=== PATIENT | female | born 1970 | race Two or more races ===

== ENCOUNTER 2021-10-21 12:25 | Outpatient (REF) | payer MEDICARE, MEDICAID, SELFPAY ==
[2021-10-21 13:58] LABS: Blood Urea Nitrogen 13 mg/dL (9-16); Estimated Glomerular Filt Rate > 60
== END 2021-10-21 12:26 | disposition home or self-care (01) ==
LOC: HO.LAB 12:25
PROVIDERS: PCP Internal Medicine; Visit Provider Psychiatry & Neurology Neurology
DX: I60.9 Nontraumatic subarachnoid hemorrhage, unspecified (principal); G44.209 Tension-type headache, unspecified, not intractable
CPT/HCPCS: 36415; 82565; 84520

== ENCOUNTER 2021-10-27 07:53 | Outpatient (REF) | payer MEDICARE, MEDICAID, SELFPAY ==
--- NOTE | ~2021-10-27 | CT_ITS ---
EXAMINATION: CT ANGIOGRAM BRAIN, HEAD CLINICAL INFORMATION: 51-year-old with non-traumatic subarachnoid hemorrhage. COMPARISON: None TECHNIQUE: Test bolus sequences followed by intravenous administration 100 mL of Omnipaque 350 intravenous contrast. Helical imaging was performed in the axial plane from the skull base to the vertex. Delayed postcontrast imaging of the head was also performed. The data was processed at the remote sensing technologist's workstation for generation of MIP sequences. Three-dimensional volume rendered reformatted images were also generated at an offline 3-D workstation. The degree of stenosis determined by NASCET criteria. This CT examination was performed using dose optimization techniques as appropriate, variously including the following: *Automated exposure control. *Adjustment of mA and/or kV according to patient size (this includes techniques or standardized protocols for targeted exams where dose is matched to indication/reason for exam; i.e. extremities or head). *Use of iterative reconstruction technique. DLP: 2291 mGy-cm FINDINGS: CT BRAIN: Precontrast and delayed postcontrast views demonstrate that the brain is normal in morphology and attenuation. There is no evidence for hemorrhage or extra-axial fluid collection. Embolic coils are noted in place in the posterior fossa, consistent with the patient's history of previous partial embolization and resection for posterior fossa AVM in 1997. Jesus-white matter differentiation is preserved. The ventricular system and subarachnoid spaces are within normal limits without hydrocephalus. There are postoperative changes involving the posterior suboccipital calvarium in the midline. Otherwise, the bony structures appear intact. The mastoids and middle ear cavities are unopacified and the visualized paranasal sinuses are clear. The visualized extracranial soft tissue structures are unremarkable. The visualized extradural vertebral arteries are patent and normal in caliber bilaterally and appear codominant. The intradural vertebral arteries are patent without segmental occlusion or significant focal stenosis. The posterior inferior cerebellar arteries are not clearly visualized. The basilar artery is tortuous but is otherwise normal in caliber and configuration. Superior cerebellar and posterior cerebral arteries are patent and normal in caliber. No evidence for recurrent high flow vascular malformation. The ICAs are patent and normal in caliber bilaterally. The A1 and A2 segments are patent and normal in caliber. The M1 segments and M2 branches are symmetric and are patent and normal in caliber. CT/CT angio head IMPRESSION: 1. Post embolic and postsurgical changes noted in the posterior fossa consistent with previous treatment of arteriovenous malformation with no definite evidence for recurrent high flow vascular malformation. 2. No acute intracranial process with otherwise unremarkable pre and postcontrast CT of the brain.
[2021-10-27] MEDS: iohexoL 350 MG/ML 100 ML INFUS..BTL 75 ML IV (08:47)
== END 2021-10-27 07:54 | disposition home or self-care (01) ==
LOC: HO.CT 07:53
PROVIDERS: PCP Internal Medicine; Visit Provider Psychiatry & Neurology Neurology
DX: I60.9 Nontraumatic subarachnoid hemorrhage, unspecified (principal)
CPT/HCPCS: 70496; Q9967

== ENCOUNTER 2023-07-20 12:30 | Emergency (ER) | payer OTHER, SELFPAY ==
[2023-07-20] VITALS (7 sets, daily range): BP systolic 124–156; BP diastolic 61–77; PULSE 90–120; RESP 16–20; TEMP 36.4–36.9; O2SAT 98–99; BMI 25.6
--- NOTE | ~2023-07-20 | CT_ITS ---
EXAMINATION: CT HEAD WITHOUT CONTRAST CLINICAL INFORMATION: Headache COMPARISON: CT brain 10/27/2021 TECHNIQUE: Contiguous axial imaging was performed from the skull base to vertex without intravenous administration of contrast. This CT examination was performed using dose optimization techniques as appropriate, variously including the following: *Automated exposure control *Adjustment of mA and/or kV according to patient size (this includes techniques or standardized protocols for targeted exams where dose is matched to indication/reason for exam; i.e. extremities or head) *Use of iterative reconstruction technique DLP: 773 mGy-cm FINDINGS: There is no acute intra-axial, extra-axial bleed, masses or midline shift. There is no acute infarction in evolution. There is no edema the snyder to white matter differentiation is maintained normal. The lateral ventricles are symmetrical in size and configuration without enlargement. There is midline axilla craniotomy with midline metallic density question embolization coils or postsurgical changes. The paranasal sinuses and mastoid air cells are well-aerated. CT/CT head/brain wo IV con IMPRESSION: No acute intracranial process seen. Postsurgical changes in the posterior fossa. No change from previous CT brain 10/27/2021
--- NOTE | 2023-07-20 12:36 | ED_ITS ---
HPI - Chest Pain General Chief Complaint: Arrhythmia/Palpitations Stated Complaint: Low BP Time Seen by Provider: 07/20/23 18:22 Source: patient Mode of arrival: ambulatory Limitations: no limitations History of Present Illness HPI narrative: 53-year-old female came in for evaluation of 1 day history of palpitation, feeling lightheadedness, fatigued and tired. patient's symptoms is mostly with walking and exertion, in the morning patient had left upper extremity numbness without weakness or speech abnormality that is resolved shortly, patient had a history of AVM malformation that was treated by surgical clipping remotely causing the patient to live with chronic headache that is not any worse today. Patient checked her blood pressure at her pharmacy today and was 88/45. no cp or sob (tiredness feeling rather with exertion), no recent travel, no LE swelling or tenderness, no hx of PE or DVT. also decline Flu like symptoms, fever, or chills. Related Data Previous Rx's Medication Instructions Recorded cefuroxime axetil 500 mg tablet 500 mg PO BID #14 tabs 07/20/23 Allergies Allergy/AdvReac Type Severity Reaction Status Date / Time famciclovir [From Famvir] Allergy Palpitation Verified 07/20/23 12:41 s Review of Systems 2 Review of Systems: All other systems are reviewed and are negative Constitutional: Reports as per HPI and Reports no additional constitutional complaints Eyes: Reports as per HPI and Reports no additional eye complaints Reports system reviewed and no additional complaints, except as documented Cardiovascular: Reports as per HPI and Reports no additional cardiovascular complaints Respiratory: Reports as per HPI and Reports no additional respiratory complaints Gastrointestinal: Reports as per HPI and Reports no additional gastrointestinal complaints Genitourinary: Reports no additional female genitourinary complaints Musculoskeletal: Reports no additional musculoskeletal complaints Skin/Breast: Reports system reviewed and no additional complaints, except as docu Psychiatric: Reports no additional psychiatric complaints Endocrine: Reports no additional endocrine complaints Hematologic/Lymphatic: Reports no additional hematologic/lymphatic complaints Allergic/Immunologic: Reports no additional allergic/immunologic complaints Reports system reviewed and no additional complaints, except as documented and Reports Abnormal speech present [facility] Past Medical History Source: unable to obtain Social History Social History Smoked in Last 30 Days: No Use of substances other than those prescribed or required for medical reasons: No Advance Directives: No Patient : No Physical Exam 2 Vital Signs: Vital Signs: Last Vital Signs Temp 98.2 F 07/20/23 21:37 Pulse 94 07/20/23 21:37 Resp 16 07/20/23 21:37 BP 134/69 07/20/23 21:37 Pulse Ox 98 07/20/23 21:37 O2 Del Method Room Air 07/20/23 21:37 BMI result Body Mass Index 25.6 Vital signs have been reviewed and appear to be correct. Blood pressure elevated. Heart rate elevated. Respiratory rate normal. Temperature normal. Oxygen saturation normal. Appearance: Alert. Oriented X3. No acute distress. Head: Normal external exam. Normocephalic. Atraumatic. No Liang signs noted. No raccoon eyes noted Eyes: PERRLA. EOMI. Conjunctiva and sclera normal. Eyelids normal. ENT: TM's Normal. Pharynx normal. Uvula midline. Dry mucous membranes. No trismus noted. No drooling noted. No muffled voice noted. Neck: Normal inspection. Neck supple. FROM. No adenopathy. Thyroid Normal. No meningeal signs. No neck mass noted. CVS: Normal heart rate and rhythm. Heart sound normal. No murmurs noted. Pulses normal throughout. Respiratory: No respiratory distress. Painless inspiration. Breath sounds normal. No wheezes/rales/rhonchi noted. Chest nontender. No accessory muscle usage noted or decreased air movement noted. Abdomen: Soft and nontender. Bowel sounds normal in all 4 quadrants. No distention noted. No organomegaly noted. No visible injury noted. Back: No CVA tenderness. Full range of motion noted. Skin: Skin warm and dry. Normal skin color. Normal skin turgor. No rashes/lesions/lacerations noted. Extremities: No lower extremity edema. Extremities exhibit normal range of motion. Extremities nontender. Neuro: Oriented X 3. Cranial nerve exam: II-XII are grossly intact No motor deficit. No sensory deficit. Reflexes normal. NIH Stroke Scale Level of Consciousness: Alert Level of Consciousness Questions: Answers both questions correctly Level of Consciousness Commands: Performs both tasks correctly Best Gaze: Normal Visual: No visual loss Facial Palsy: Normal Motor Arm (Right): No drift Motor Arm (Left): No drift Motor Leg (Right): No drift Motor Leg (Left): No drift Limb Ataxia: Absent Sensory: Normal Best Language: No aphasia Dysarthia: Normal Extinction and Inattention: No abnormality Score: 0 Course Course Course Narrative: RME: 53 year-old F w/ PMHx mini stroke, aneurysm presenting to the ED c/o CP since yesterday, and now with LUE tingling/numbness, lightheadedness, palpitations w/ low BP at [employer] 88/45. Not on AC Suspect A.fib w/RVR on monitor in triage (new onset) EKG, Labs, CXR orthostatics ordered Full HPI, ROS and PE to be performed by primary ED provider. Reevaluation(s) Reevaluation #1: [age] year old female presented with generalized weakness and fatigue with lack of energy today had a low blood pressure and palpitation with sinus tachycardia, no hypoxia or tachyapnea. No fever or chills. No sick contacts, patient had unremarkable labs, appear to be dehydrated on the exam, with a normal renal function test, patient had orthostatic tachycardia, patient received IV fluid in the emergency department feeling slightly better. UTI will treat with cefuroxime patient was encouraged to drink plenty of fluids. Head CT: No acute intracranial pathology. No new or acute headache, no weakness or numbness. Time: 21:33 Medications Administered Discontinued Medications Generic Name Dose Route Start Last Admin Trade Name Freq PRN Reason Stop Dose Admin Cefuroxime Axetil 500 mg 07/20/23 21:31 07/20/23 21:45 Cefuroxime Axetil 500 Mg Tablet PO 07/20/23 21:32 500 mg ONCE ONE Administration Sodium Chloride 1,000 mls @ 999 mls/hr 07/20/23 18:43 07/20/23 20:50 Ns IV 07/20/23 19:43 Infused .Q1H1M ONE Infusion Medical Decision Making Differential Diagnosis Differential Diagnoses: The differential diagnosis associated with the presentation includes (Dehydration, electrolyte abnormality, thyroid disease, rhabdomyolysis, dysrhythmia, severe anemia, UTI.) Admission/Observation Consideration of admission/observation: Escalation of care including admission/observation considered Lab Data MDM Lab Attestation statement: I reviewed the patient's lab results. 07/20/23 15:28 07/20/23 13:03 Labs: Lab Results 07/20/23 07/20/23 07/20/23 Range/Units 13:03 15:28 18:29 WBC 10.1 (4.8-10.8) X10*3/uL RBC 4.72 (4.20-5.50) X10*6/uL Hgb 14.6 (12.0-16.0) g/dl Hct 44.0 (37.0-47.0) % MCV 93.2 (80.0-98.0) fL MCH 30.9 (27.0-33.0) pg MCHC 33.2 (31.0-35.0) g/dl RDW 13.2 (11.0-16.0) % Plt Count 273 (160-400) X10*3/uL MPV 10.8 (9.4-12.3) fL Immature Gran % (Auto) 0.8 H (0.0-0.4) % Neut % (Auto) 62.2 (45-73) % Lymph % (Auto) 29.2 (20-40) % [place] % (Auto) 7.3 (2-11) % Eos % (Auto) 0.2 (0-4) % Baso % (Auto) 0.3 (0-2) % Lymph # (Auto) 3.0 (1.2-4.9) X10*3/uL [place] # (Auto) 0.7 (0.1-1.2) X10*3/uL Eos # (Auto) 0.0 (0.0-0.4) X10*3/uL Baso # (Auto) 0.0 (0.0-0.2) X10*3/uL Abs Immat Gran (auto) 0.08 H (0.00-0.03) X10*3/uL Absolute Neuts (auto) 6.3 (2.0-8.3) x10*3/uL Absolute Nucleated RBC 0.000 (0.0-0.012) X10*3/uL Nucleated RBC % (auto) 0.0 (0.0-0.2) /100WBC PT 12.4 (11.1-13.3) SEC INR 1.0 (0.9-1.1) Sodium 139 (135-145) mmol/L Potassium 4.1 (3.3-5.1) mmol/L Chloride 106 (96-108) mmol/L Carbon Dioxide 23 (22-29) mmol/L Anion Gap 14 (12-20) BUN 13 (9-16) mg/dL Creatinine 0.67 (0.5-1.4) mg/dL Estim Creat Clear Calc 93.9 Estimated GFR > 60 Random Glucose 89 (60-115) mg/dL Calcium 10.0 (8.4-10.2) mg/dL Magnesium 2.0 (1.6-2.6) mg/dL Total Bilirubin 0.7 (0.0-1.0) mg/dL Direct Bilirubin 0.3 (0.0-0.5) mg/dL AST 16 (5-31) U/L ALT 17 (0-31) U/L Alkaline Phosphatase 95 (39-117) U/L Total Creatine Kinase 45 (26-140) U/L Troponin I High Sens < 2.7 (<3.5-17.0) ng/L Total Protein 7.8 (6.5-8.0) g/dL Albumin 4.2 (3.5-5.0) g/dL TSH 1.12 (0.32-4.0) uIU/mL Beta HCG, Quant < 2 mIU/mL Urine Color Dark Yellow Urine Appearance Clear Urine pH 5.5 (5.0-9.0) Ur Specific [place] 1.025 (1.005-1.025) Urine Protein Negative (Neg-Trace) mg/dL Urine Glucose (UA) Negative (Negative) mg/dL Urine Ketones 15 (Negative) mg/dL Urine Blood Trace H (Negative) Urine Nitrite Negative (Negative) Ur Leukocyte Esterase Small (1+) H (Negative) Urine RBC 6-10 H (0-2) /HPF Urine WBC 6-10 H (0-5) /HPF Ur Squamous Epith Cells 6-10 (0-2) /HPF Urine Bacteria 2+ (None Seen) Hyaline Casts 0-2 (0-2) /LPF COVID-19 (SOURAV) Negative (Negative) COVID-19 Clin Com See Note 07/20/23 Range/Units 19:04 WBC (4.8-10.8) X10*3/uL RBC (4.20-5.50) X10*6/uL Hgb (12.0-16.0) g/dl Hct (37.0-47.0) % MCV (80.0-98.0) fL MCH (27.0-33.0) pg MCHC (31.0-35.0) g/dl RDW (11.0-16.0) % Plt Count (160-400) X10*3/uL MPV (9.4-12.3) fL Immature Gran % (Auto) (0.0-0.4) % Neut % (Auto) (45-73) % Lymph % (Auto) (20-40) % Latimer % (Auto) (2-11) % Eos % (Auto) (0-4) % Baso % (Auto) (0-2) % Lymph # (Auto) (1.2-4.9) X10*3/uL [place] # (Auto) (0.1-1.2) X10*3/uL Eos # (Auto) (0.0-0.4) X10*3/uL Baso # (Auto) (0.0-0.2) X10*3/uL Abs Immat Gran (auto) (0.00-0.03) X10*3/uL Absolute Neuts (auto) (2.0-8.3) x10*3/uL Absolute Nucleated RBC (0.0-0.012) X10*3/uL Nucleated RBC % (auto) (0.0-0.2) /100WBC PT (11.1-13.3) SEC INR (0.9-1.1) Sodium (135-145) mmol/L Potassium (3.3-5.1) mmol/L Chloride (96-108) mmol/L Carbon Dioxide (22-29) mmol/L Anion Gap (12-20) BUN (9-16) mg/dL Creatinine (0.5-1.4) mg/dL Estim Creat Clear Calc Estimated GFR Random Glucose (60-115) mg/dL Calcium (8.4-10.2) mg/dL Magnesium (1.6-2.6) mg/dL Total Bilirubin (0.0-1.0) mg/dL Direct Bilirubin (0.0-0.5) mg/dL AST (5-31) U/L ALT (0-31) U/L Alkaline Phosphatase (39-117) U/L Total Creatine Kinase (26-140) U/L Troponin I High Sens < 2.7 (<3.5-17.0) ng/L Total Protein (6.5-8.0) g/dL Albumin (3.5-5.0) g/dL TSH (0.32-4.0) uIU/mL Beta HCG, Quant mIU/mL Urine Color Urine Appearance Urine pH (5.0-9.0) Ur Specific [place] (1.005-1.025) Urine Protein (Neg-Trace) mg/dL Urine Glucose (UA) (Negative) mg/dL Urine Ketones (Negative) mg/dL Urine Blood (Negative) Urine Nitrite (Negative) Ur Leukocyte Esterase (Negative) Urine RBC (0-2) /HPF Urine WBC (0-5) /HPF Ur Squamous Epith Cells (0-2) /HPF Urine Bacteria (None Seen) Hyaline Casts (0-2) /LPF COVID-19 (SOURAV) (Negative) COVID-19 Clin Com Independent Interpretation I performed an independent interpretation of an: CT Scan (Head:No acute intracranial process seen. Postsurgical changes in the posterior fossa. No change from previous CT brain 10/27/2021 ) Radiology Impression Discussion of test interpretation with radiology: I have reviewed the radiologist's reading. Scores Heart Score History: -0- slightly suspicious ECG: -0- normal Age: -1- >45 - <65 Risk factory: -1- 1 or 2 risk factors Troponin: -0- < or = normal limit Score: 2 Risk: 1.7% Wells DVT Alternative Dx as likely as or more likely than DVT: -2 (viral syndrome, UTI.) Score: -2 2-tier Risk: unlikely risk (5%) 3-tier Risk: low risk (3%) Discharge Plan Discharge Clinical Impression: Acute dehydration, Palpitation, UTI (urinary tract infection) Patient Disposition: Home, Self-Care Instructions: Dehydration (ED), Urinary Tract Infection in Women (DC) Additional Instructions: No strenuous activity for the next 24 hours, drink plenty of fluids, take the antibiotic for UTI. Prescriptions: New cefuroxime axetil 500 mg tablet 500 mg PO BID Qty: 14 0RF Referrals: Helder Cassidy III, MD [Primary Care Provider] - Interventions: ED Discharge Assessment Last Done: 07/20/23 21:50 Discharge Date/Time: 07/20/23 22:05
--- NOTE | 2023-07-20 12:37 | ECG_ITS ---
Test Reason : cp Blood Pressure : / mmHG Vent. Rate : 093 BPM Atrial Rate : 093 BPM P-R Int : 130 ms QRS Dur : 072 ms QT Int : 332 ms P-R-T Axes : 073 022 079 degrees QTc Int : 412 ms Normal sinus rhythm with sinus arrhythmia Normal ECG No previous ECGs available Referred By: Edilma Cano Electronically Signed By:Tutu Garcia
[2023-07-20 13:28] LABS: Alanine Aminotransferase 17 U/L (0-31); Albumin Level 4.2 g/dL (3.5-5.0); Alkaline Phosphatase 95 U/L (39-117); Anion Gap 14 (12-20); Aspartate Amino Transferase 16 U/L (5-31); Bilirubin Direct 0.3 mg/dL (0.0-0.5); Bilirubin Total 0.7 mg/dL (0.0-1.0); Blood Urea Nitrogen 13 mg/dL (9-16); COVID-19 Test Negative (Negative); Carbon Dioxide 23 mmol/L (22-29); Chloride 106 mmol/L (96-108); Creatinine Clr Calc Pharmacy 93.9; Estimated Glomerular Filt Rate > 60; Glucose Random 89 mg/dL (60-115); IDNOW Serial# 152EDE1D; Potassium 4.1 mmol/L (3.3-5.1); Sodium 139 mmol/L (135-145); Total Protein 7.8 g/dL (6.5-8.0)
[2023-07-20 14:05] LABS: Troponin-I High Sensitivity < 2.7 ng/L (<3.5-17.0)
[2023-07-20 14:49] LABS: TSH reflex Free T4 1.12 uIU/mL (0.32-4.0)
[2023-07-20 15:32] LABS: MANUAL DIFF FLAG NO
[2023-07-20 15:40] LABS: Basophils Percent Auto 0.3 % (0-2); Eosinophils Percent Auto 0.2 % (0-4); Hemoglobin 14.6 g/dl (12.0-16.0); Imm Gran Abs Auto 0.08 X10*3/uL (0.00-0.03); Imm Gran Pct Auto 0.8 % (0.0-0.4); Lymphocytes Percent Auto 29.2 % (20-40); Mean Corpuscular HGB Conc 33.2 g/dl (31.0-35.0); Mean Corpuscular Hemoglobin 30.9 pg (27.0-33.0); Mean Corpuscular Volume 93.2 fL (80.0-98.0); Mean Platelet Volume 10.8 fL (9.4-12.3); Monocytes Absolute Auto 0.7 X10*3/uL (0.1-1.2); Monocytes Percent Auto 7.3 % (2-11); Neutrophils Absolute Auto 6.3 x10*3/uL (2.0-8.3); Neutrophils Percent Auto 62.2 % (45-73); Platelet Count 273 X10*3/uL (160-400); Red Blood Count 4.72 X10*6/uL (4.20-5.50); Red Cell Distribution Width 13.2 % (11.0-16.0); White Blood Count 10.1 X10*3/uL (4.8-10.8)
[2023-07-20 15:41] LABS: Prothrombin Time 12.4 SEC (11.1-13.3)
[2023-07-20 18:40] LABS: Appearance Urine Clear; Color Urine Dark Yellow; Glucose Urine UA Negative (Negative); Leukocyte Esterase Urine Small (1+) (Negative); Nitrite Urine Negative (Negative); PH 5.5 (5.0-9.0); Specific Gravity - Urine 1.025 (1.005-1.025); UMIC TRIGGER UACC YES; Urine Blood Trace (Negative); Urine Ketones 15 mg/dL (Negative); Urine Protein Negative (Neg-Trace)
[2023-07-20 18:56] LABS: Bacteria Urine 2+ (None Seen); Hyaline Casts Urine 0-2 /LPF (0-2); UACC Culture Trigger YES
[2023-07-20] MEDS: 0.9 % Sodium Chloride 1,000 ML 999 ML IV (19:05)
[2023-07-20 19:27] LABS: Troponin-I High Sensitivity < 2.7 ng/L (<3.5-17.0)
[2023-07-20] MEDS: cefuroxime axetiL 500 MG TABLET PO (21:45)
[2023-07-20 22:08] LABS: HCG Quantitative < 2 mIU/mL
== END 2023-07-20 22:05 | disposition home or self-care (01) ==
PROVIDERS: Physician Assistant; Emergency Provider Emergency Medicine; PCP Internal Medicine
DX: E86.0 Dehydration (principal); R00.2 Palpitations; N39.0 Urinary tract infection, site not specified; I49.9 Cardiac arrhythmia, unspecified; R51.9 Headache, unspecified; R42 Dizziness and giddiness; R07.89 Other chest pain; I49.8 Other specified cardiac arrhythmias; Z11.52 Encounter for screening for COVID-19
CPT/HCPCS: 36415; 70450; 80048; 80076; 81001; 82550; 83735; 84443; 84484; 84702; 85025; 85610; 87086; 87635; 93005; 96360; 96361; 99284; 99285

== ENCOUNTER → 2023-07-20 12:37 | Outpatient (BNV) | payer OTHER, SELFPAY | PROVIDERS: PCP Internal Medicine; Visit Provider Internal Medicine Cardiovascular Disease | DX: R07.9 Chest pain, unspecified (principal) | CPT/HCPCS: 93010 ==

== ENCOUNTER 2025-05-02 15:14 | Outpatient (AMB) | payer OTHER, SELFPAY ==
--- NOTE | 2025-05-02 15:29 | A.OFFVIS_ITS ---
Intake Visit Reasons: 6m Allergies famciclovir (From Famvir) Allergy (Verified 05/02/25 15:29) Palpitations Medication List - Last Reconciled 05/02/25 by Thelma Holly CNP albuterol sulfate 90 mcg/actuation 2 puffs inhalation Q4H PRN nokrgjcebn-vvbrziyazkupw-aaro 50-325-40 mg 1 - 2 tabs PO DAILY PRN cefuroxime axetil 500 mg PO BID cyclobenzaprine 10 mg PO BID estradiol 0.01%(0.1mg/gram) vaginal meclizine 12.5 mg PO Q12H PRN sertraline mg PO solifenacin 5 mg PO DAILY topiramate mg PO HPI Comments Details: Headaches have been so-so. Butalbital as needed helps some. Notices more headaches and dizziness with stress. Some ongoing stress related to family issues. Working with therapist. Sleep was not so good, having trouble falling asleep and having trouble focusing during the day. Previously, headaches were happening about 3-4x/week. Sharp pain to right side of head. No light or sound sensitivity, nausea, or vomiting. Stress and anxiety, works with therapist weekly. ?Hx of migraines since she was a child. In 1996, she had severe headache and was found to have ruptured intracranial aneurysm which was clipped at [facility]. She has chronic headaches that occur 3-4 days/week. Uses a lot of Tylenol. Gets bitemporal pressure type headaches which can be brief for a few minutes or last for a few hours, generally has to lay down. Has difficulty sleeping at night, both initiating and maintaining sleep. She had cardiac and vascular workup for some pain in left leg around knee and some left chest and arm pain. [facility] Medical History (Updated 05/02/25 @ 15:45 by Thelma Holly CNP) AVM (arteriovenous malformation) Ruptured aneurysm of intracranial artery Surgical History (Updated 05/02/25 @ 15:35 by Thelma Holly CNP) S/P hysterectomy Review of Systems Const Denies chills, Denies daytime sleepiness, Reports difficulty sleeping, Denies fatigue, Denies fever(s), Denies frequent falls, Reports headache(s), Denies increased appetite, Denies poor appetite, Denies snoring, Denies weakness, Denies weight gain and Denies weight loss Eyes Denies loss of vision ENT Denies vertigo, Denies dizziness, Reports headache(s) and Denies neck pain Card Denies chest pain at rest, Denies chest pain with activity, Denies syncope, Denies leg edema, Denies palpitations, Denies dyspnea and Denies dyspnea on exertion Resp Denies cough, Denies dyspnea, Denies dyspnea on exertion and Denies snoring GI Denies abdominal pain, Denies constipation, Denies heartburn, Denies diarrhea and Denies nausea Denies urinary frequency, Denies urinary incontinence and Denies urinary urgency Musc Denies abnormal gait, Reports back pain, Denies myalgias, Denies arthralgias, Denies neck pain, Reports numbness and Reports tingling Neuro Denies abnormal gait, Denies vertigo, Denies dizziness, Denies syncope, Denies frequent falls, Reports headache(s), Denies lack of coordination, Denies loss of vision, Denies memory loss, Reports numbness, Denies Other visual disturbances, Denies restless legs, Denies seizure-like activity, Reports tingling, Denies paresthesias, Denies tremor(s) and Denies weakness Psych Reports anxiety, Reports depression, Denies auditory hallucinations, Denies memory loss and Denies visual hallucinations Endo Denies fatigue and Denies palpitations Physical Exam Const Other: General Appearance:? normal, in no acute distress. Heart:? S1, S2 normal, no murmurs. Lungs:? clear anteriorly and posteriorly. Musculoskeletal:? normal. Extremities:? no edema. Psych:? alert, oriented, cognitive function intact, cooperative with exam. Neuro Other: Abnormal Neurological Findings:?none.? Mental Status: alert and oriented X 3. Normal attention, orientation, memory, and affect. Cranial Nerves: Pupils are equal, round, and reactive to light. External ocular muscles are intact. Visual storm are full, no ptosis. Face is symmetrical, no facial weakness or droop. Facial sensations are normal. Tongue protrudes in midline. Palate elevates symmetrically. Shoulder shrugging is normal Motor Examination: Normal muscle tone, bulk and strength. No atrophy or fasciculations. No drift of the extended upper extremities. DTR 2+. Plantars are flexor. Sensory Exam: Normal light touch, temperature, pinprick, vibration, and joint- position sensations. Rhomberg sign is absent. Coordination: No ataxia. No titubation. Gait Exam: Within normal limits. Cerebellar Signs: Qfiqqg-no-owyz is okay. Extrapyramidal System: No tremor, rigidity with normal facial expressions. No bradykinesia. No bradyphrenia. Normal arm swing and posture. No propulsion or retropulsion. Speech: Normal. Assessment & Plan Assessment & Plan (1) Tension headache: Code(s): G44.209 - Tension-type headache, unspecified, not intractable Category: Medical Plan: Continue topiramate 25mg 1 tablet in the morning and 2 tablets at bedtime. Continue cyclobenzaprine 10mg 1 tablet twice a day as needed for muscle spasm/pain #60 for 30 days. Continue rvqwbaejgf-PJYN-lixr 50-325-40mg 1-2 tablets as needed for headache #10 for 30 days. (2) Dizziness: Code(s): R42 - Dizziness and giddiness Category: Medical Plan: Continue meclizine 12.5mg 1 tablet as needed q12h for dizziness #30 for 30 days (3) Insomnia: Code(s): G47.00 - Insomnia, unspecified Category: Medical Qualifiers: Insomnia type: unspecified Qualified Code(s): G47.00 - Insomnia, unspecified Plan: Start trazodone 100mg 1 tablet as needed for sleep at bedtime, use/side effects reviewed. Plan Meds tried: amitriptyline, nortriptyline Medications: New cyclobenzaprine 10 mg PO BID PRN 60 tabs 2RF muscle spasm, pain 30 days topiramate 25 mg orally 1 tablet in the morning and 2 tablets at bedtime; 270 tabs 1RF 90 days trazodone 100 mg PO BEDTIME PRN 30 tabs 2RF sleep 30 days meclizine 12.5 mg PO Q12H PRN 30 tabs 2RF dizziness 30 days ytcjschazs-imbvkmygolzue-zyss 50-325-40 mg 1 - 2 tabs PO DAILY PRN 10 tabs 2RF headache 30 days Coding Level of Care Code Est Pt Level 4 (43394) Diagnoses Tension headache G44.209 Dizziness R42 Insomnia, unspecified type G47.00 Insomnia type: unspecified
--- OUTSIDE RECORDS SUMMARY | 2025-05-02 18:14 | XMS_ITS | Clinical Summary ---
Author Organization [facility] Address [address] [place] [address] Care Team Providers Care Light Out Examiner Name Role Phone Unavailable Primary Care Provider Unavailabl e Social History Tobacco Use Types Packs/Day Years Used Date Smoking Tobacco: Never Assessed Comments Unknown Sex and Gender Information Value Date Recorded Sex Assigned at Not on file Legal Sex Female 1:07 PM EDT Gender Identity Not on file Sexual Orientation Not on file Plan of Treatment Health Maintenance Due Date Last Done Comments Hepatitis C Virus Screening 1970 HIV Screening 01/24/1985 DTaP/Tdap/Td Vaccines (1 - Tdap) 01/24/1991 Hepatitis B Vaccines (1 of 3 - 19+ 3-dose series) 12/27 Pneumococcal Vaccines 50+ (1 of 1 - PCV) 01/24/2022 Zoster (Shingles) Vaccine (1 of 2) 01/24/2022 COVID-19 Vaccine (1 - 2023- season) 2025 RSV Vaccine 50 years and old er and Patients (1 - 1-dose 75+ series) 01/24/2047
--- OUTSIDE RECORDS SUMMARY | 2025-05-02 18:14 | XMS_ITS | Clinical Summary ---
Author Organization [facility] Address [address] [place] [address] Care Team Providers Care Photo Graphics Librarian Name Role Phone Helder Cassidy MD Primary Care Provider [phone] Allergies Active Allergy Reactions Criticality Noted Date Comments Famciclovir 01/31/2017 Medications Medication Sig Dispensed Refills Start Date End Date Status amitriptyline (ELAVIL) 10 MG tablet TK 1 T PO HS 4 11/08/2016 Active busPIRone (BUSPAR) 15 MG tablet TK 2 TS PO TID 3 11/30/2016 Active carBAMazepine (TEGRETOL) 200 MG tablet TK 1 T PO BID 3 12/29/2016 Active risperiDONE (RISPERDAL) 3 MG tablet TK 1 T PO 1 TIME HS 3 12/29/2016 Active venlafaxine (EFFEXOR) 75 MG tablet TK 3 TS PO QD IN THE MORNING 3 12/29/2016 Active Active Problems Problem Noted Date Diagnosed Date Acute pain of right knee 03/04/2017 Family History Medical History Relation Name Comments Cancer Father Relation Name Status Comments Father Social History Tobacco Use Types Packs/Day Years Used Date Smoking Tobacco: Never Assessed Sex and Gender Information Value Date Recorded Sex Assigned at Not on file Gender Identity Not on file Sexual Orientation Not on file Job Start Date Occupation Industry Not on file Not on file Not on file Last Filed Vital Signs Vital Sign Reading Time Taken Comments Blood Pressure - - Pulse - - Temperature - - Respiratory Rate - - Oxygen Saturation - - Inhaled Oxygen Concentration - - Weight 66.7 kg (147 lb) 02/01/2017 11:48 AM EDT Height 162.6 cm (5' 4 ) 02/01/2017 11:48 AM EDT Body Mass Index 25.23 02/01/2017 11:48 AM EDT Plan of Treatment Health Maintenance Due Date Last Done Comments Hepatitis B Vaccines (1 of 3 - 3-dose series) 1972 Hepatitis C Screening 1972 COVID-19 Vaccine (#1) 1972 Depression Screening 1984 Preventative Health Evaluation 01/24/1990 DTap / Tdap / Td (1 - Tdap) 01/24/1991 Cervical Cancer Screening (P ap Smear) 01/24/1993 Colon Cancer Screening (Colonoscopy) 01/24/2017 Breast Cancer Screening (Mammogram) 01/24/2022 Shingrix-Zoster Vaccine (1 of 2) 01/24/2022 Influenza Vaccine (#1) 2025 Pneumococcal Vaccine Aged Out No long er eligible based on patient's age to complete this topic RSV Ped < 20 months Aged Out No longe r eligible based on patient's age to complete this topic Care Teams Photo Graphics Librarian Relationship Specialty Start Date End Date Helder Cassidy MD PCP - General Internal Medicine 01/21/17
--- OUTSIDE RECORDS SUMMARY | 2025-05-02 18:14 | XMS_ITS ---
Author Name [facility] Organization Unknown History of Medication Use Medication Directions Dispensed Refills Start Date End Date Status Synvisc-One 48 mg/6 mL intra-articular syringe Take 48 mg by intraarticular route. 5 active Durolane 60 mg/3 mL intra-articular syringe Take 60 mg by intraarticular route. 4 active Kenalog 40 mg/mL suspension for injection Take 1 mL by injection route. 4 active lidocaine (PF) 10 mg/mL (1 %) injection solution Take 2 mL by injection route. 4 active methylprednisolone acetate 40 mg/mL suspension for injection 8 018 completed carbamazepine 200 mg tablet TK 1 T PO BID 7 active risperidone 3 mg tablet TK 1 T PO 1 TIME HS 7 active venlafaxine 75 mg tablet TK 3 TS PO QD IN THE MORNING 7 active buspirone 15 mg tablet TK 2 TS PO TID 7 active amitriptyline 10 mg tablet TK 1 T PO HS 7 active Kenalog 40 mg/mL suspension for injection active lidocaine (PF) 10 mg/mL (1 %) injection solution active Synvisc-One 48 mg/6 mL intra-articular syringe active acetaminophen 500 mg tablet TAKE 2 TABLET BY MOUTH FOUR TIMES DAILY active albuterol sulfate HFA 90 mcg/actuation aerosol inhaler INHALE 2 PUFFS BY MOUTH EVERY 4 HOURS NEEDED FOR WHEEZING OR SHORTNESS OF BREATH active amitriptyline 25 mg tablet TAKE 1 TABLET BY MOUTH EVERY DAY AT BEDTIME active amoxicillin 500 mg tablet TAKE 1 TABLET BY MOUTH THREE TIMES DAILY UNTIL GONE active BinaxNOW COVID-19 Ag Self Test kit TEST DIRECTED TODAY active butalbital-acetaminophe n-caffeine 50 mg-325 mg-40 mg tablet TAKE 1 TO 2 TABLETS BY MOUTH EVERY DAY NEEDED active cefuroxime axetil 500 mg tablet TAKE 1 TABLET BY MOUTH TWICE DAILY active chlorhexidine gluconate 0.12 % mouthwash RINSE MOUTH WITH 15ML FOR SOLUTION FOR 30 SECONDS EVERY MORNING AND EVERY EVENING AFTER TOOTHBRUSHING EXPECTORATE AFTER RINSING DO NOT SWALLOW active cyclobenzaprine 10 mg tablet TAKE 1 TABLET BY MOUTH TWICE DAILY active diclofenac sodium 75 mg tablet,delayed release TAKE 1 TABLET BY MOUTH TWICE DAILY AFTER A MEAL active docusate sodium 100 mg capsule TAKE 1 CAPSULE BY MOUTH TWICE DAILY active estradiol 0.01% (0.1 mg/gram) vaginal cream ac tive finasteride 1 mg tablet TAKE 1 TABLET BY MOUTH EVERY DAY active Gavilyte-C 240 gram-22.72 gram-6.72 gram-5.84 gram oral solution MIX AND TAKE 240 ML BY MOUTH EVERY 10-15 MINUTES DIRECTED active ibuprofen 600 mg tablet TAKE 1 TABLET BY MOUTH THREE TIMES DAILY NEEDED FOR ANALGESIA active ibuprofen 800 mg tablet TAKE 1 TABLET BY MOUTH FOUR TIMES DAILY active ketoconazole 2 % shampoo APPLY TOPICALLY TO THE SCALP 2 TIMES PER WEEK. LEAVE ON 5 MINUTES THEN WASH OFF active meclizine 12.5 mg tablet TAKE 1 TABLET BY MOUTH EVERY 12 HOURS NEEDED active medroxyprogesterone 10 mg tablet TAKE 2 TABLETS BY MOUTH DAILY active meloxicam 15 mg tablet TAKE 1 TABLET BY MOUTH DAILY active minoxidil 2.5 mg tablet TAKE 1/2 TABLET BY MOUTH EVERY DAY active nortriptyline 25 mg capsule TAKE 1 CAPSULE BY MOUTH DAILY active ondansetron 4 mg disintegrating tablet DISSOLVE 1 TABLET ON THE TONGUE EVERY 8 HOURS NEEDED FOR NAUSEA active oxycodone 5 mg tablet TAKE 1 TABLET BY MOUTH EVERY 6 HOURS NEEDED FOR SEVERE PAIN OR PAIN active sertraline 50 mg tablet TAKE 1/2 TABLET BY MOUTH FOR ONE WEEK IN NO SIDE AFFECTS TAKE 1 TABLET BY MOUTH DAILY active simethicone 80 mg chewable tablet CHEW 1 TABLET FOUR TIMES DAILY NEEDED FOR GAS/BLOATING active topiramate 25 mg tablet TAKE 1 TABLET BY MOUTH EVERY MORNING AND 2 TABLETS EVERY NIGHT AT BEDTIME active tramadol 50 mg tablet TAKE 1 TABLET BY MOUTH EVERY 6 HOURS active trospium ER 60 mg capsule,extended release 24 hr TAKE 1 CAPSULE BY MOUTH DAILY active Allergies Allergen Reaction Severity Comment Documented Date Source Statu s FAM[facility] Problems Problem Status Onset Date Problem Type Date of Resoluti on Source Primary gonarthrosis, bilateral active 2025-01-31 [facility]Act [facility] Pain of knee region active 2017-03-04 ProblemAct [facility] Osteoarthritis of right knee joint active 2023-07-12 ProblemAct [facility] Encounters Encounter Type Encounter Reason Primary Diagnosis Location Date [facility]ulatory [facility] 03/25/2025 [facility] 03/10/2025 [facility] 01/31/2025 [facility] 07/12/2024 [facility] 01/27/2024 [facility] 11/24/2023 [facility] 07/12/2023 [facility] 07/12/2023 [facility] 07/12/2023 [facility] 07/11/2023 [facility] 07/11/2023 [facility] 07/06/2023 Care Team Organization Name Specialty Phone Email Start Date End Da te [facility] ЮЛИЯ FERMIN Primary Care 06/08/2023 4 [facility] Megha Dias Primary Care 03/03/2023 024 [facility] Bernardo Iglesias Primary Care 05/04/2022 02/13/2024
--- OUTSIDE RECORDS SUMMARY | 2025-05-02 18:14 | XMS_ITS | Clinical Summary ---
Author Organization [address] [facility] [facility] Address [address] [place], [place] [address] [address] Phone Care Team Providers Care Pattern Chain Maker Supervisor Name Role Phone Helder Cassidy MD Primary Care Provider [phone] Allergies Active Allergy Reactions Criticality Noted Date Comments Acyclovir 07/06/2024 Medications finasteride (PROPECIA) 1 mg tablet Take 1 tablet (1 mg total) by mouth 1 (one) time each day. 4 Active amitriptyline HCl (AMITRIPTYLINE ORAL) Take 25 mg by mouth 3 times daily. Active multivitamin (MULTIPLE VITAMINS ORAL) Take by mouth daily. Active ascorbic acid (VITAMIN C) 500 mg chewable tablet Take by mouth daily. Active topiramate (TOPAMAX) 25 mg tablet Take 2 tablets (50 mg total) by mouth. at bedtime 4 Active minoxidiL (LONITEN) 2.5 mg tablet 5 Active ketoconazole (NIZORAL) 2 % shampoo APPLY TOPICALLY TO THE SCALP 2 TIMES PER WEEK. LEAVE ON 5 MINUTES THEN WASH OFF 4 Active cyclobenzaprine (FLEXERIL) 10 mg tablet Take 1 tablet (10 mg total) by mouth 2 (two) times a day. 5 Active meclizine (ANTIVERT) 12.5 mg tablet Take 1 tablet (12.5 mg total) by mouth every 12 (twelve) hours if needed. 5 Active ibuprofen (ADVIL,MOTRIN) 800 mg tablet Take 1 tablet (800 mg total) by mouth 3 (three) times a day if needed for mild pain (pain). 90 tablet 5 5 07/30/19 26 Active sertraline (ZOLOFT) 50 mg tablet Take 1.5 tablets (75 mg total) by mouth 1 (one) time each day. 135 each 1 5 Active solifenacin (VESICARE) 5 mg tablet TAKE 1 TABLET(5 MG) BY MOUTH 1 TIME EACH DAY. SWALLOW TABLET WHOLE. DO NOT CRUSH, CHEW, OR SPLIT 90 tablet 3 5 Active estradioL (ESTRACE) 0.01 % (0.1 mg/gram) vaginal cream APPLY A PEA SIZED AMOUNT ON YOUR FINGER AND PLACE INTO THE VAGINA TWICE A WEEK AT NIGHT(MONDAYS AND THURSDAYS) 42.5 g 5 Active Active Problems Problem Noted Date Diagnosed Date Palpitations 01/07/2022 Overview (05/16/2024): Last Assessment & Plan: She could have a minor arrhythmia. Holter monitor did not record any major arrhythmia but she was also asymptomatic. I discussed with her about commercial ambulatory monitor devices. She will purchase one. I will try to review her previous visit record when she was hospitalized for brain aneurysm to see whether she had any cardiac imaging study. Her cardiac exam otherwise is normal and reveals no obvious heart murmur. Sinus tachycardia 01/07/2022 LUQ pain 12/21/2017 Overview (05/16/2024): Last Assessment & Plan: Recommended pt take meds for reflux and see if this improves. She will also review with Dr. Cassidy tomorrow. Chest pain 11/02/2013 Overview (05/16/2024): Last Assessment & Plan: The symptoms was not exertion related. Normal ETT is reassuring. Most likely this is noncardiac chest pain. Anxiety 08/04/2012 Gallstones 12/07/2010 Depression 12/16/2008 Overview (05/16/2024): Last Assessment & Plan: She is taking amitriptyline. Referral to behavioral health placed today. Patellofemoral pain syndrome 07/31/2007 Low back pain 05/11/2006 Tension headache 05/11/2006 Common migraine 08/10/2005 Overview (05/16/2024): IMO update Esophageal reflux 08/10/2005 AVM (arteriovenous malformation) brain 6 Overview (05/16/2024): intracerebral bleed AVM resection Encounters Date Type Department Care Team Description 02/27/2025 9:02 AM EDT - 02/27/2025 11:59 PM EDT Hospital Encounter [facility] [address] [place] [address] Umbilical pain Discharge Disposition: Home or Self Care 02/26/2025 1:30 PM EDT Office Visit Adult Medicine [address] [phone] Sonya Boston, SCHOLARSHIP COUNSELOR Umbilical pain (Primary Dx); Vaginal discharge; Vaginal odor; Screen for STD (sexually transmitted disease) from Last 3 Months Immunizations Immunization Administration Dates Next Due Influenza trivalent, 0.5mL, preservative free (Fluarix; FluLaval; Fluzone) ages 6mo and older (Afluria) 3 years and older 03/11/2008,05/09/2007 Moderna SARS-CoV-2 COVID-19, mRNA, LNP-S, preservative free 10/28/2020 Pfizer (ages 12 & older) Bivalent, COVID-19 03/28 Pneumococcal conjugate 20 va lent (Prevnar 20, PCV 20) 2mo and older 01/19/2023 Td Tetanus diptheria (Tdvax) 7yo and older 08/10 Tdap Tetanus diptheria acell ular pertussis (Boostrix; Adacel) 7yo and older 09/01/2022,08/04/2012 Zoster recombinant (Shingrix) 19yo and older 09/2022,01/19/2023 Surgical History Surgery Date Site/Laterality Comments OTHER SURGICAL HISTORY PROCEDURE: OH SIMPLE INTRACRANIAL ARYSM CAROTID CIRCULATION TUBAL LIGATION PROCEDURE: HISTORICAL TUBAL LIGATION TONSILLECTOMY PROCEDURE: HISTORICAL TONSILLECTOMY OTHER SURGICAL HISTORY 04/2009 PROCEDURE: MAMMOGRAM CHOLECYSTECTOMY PROCEDURE: HISTORICAL CHOLECYSTECTOMY; COMMENT: laparoscopic BREAST BIOPSY PROCEDURE: BX BREAST; PERC NEEDLE CORE W/IMAG GUID; COMMENT: rt. breast fna BREAST SURGERY 05/27/2009 PROCEDURE: OH UNLISTED PROCEDURE BREAST; COMMENT: Breast Reduction HYSTERECTOMY 12/12/2023 N/A PROCEDURE: HISTORICAL HYSTERECTOMY; COMMENT: Robotic B/L salpingectomy OH BREAST REDUCTION Medical History Medical History Date Comments Historical Medical DX 08/05/2005 DX:Brain c onditions NEC; COMMENT: intracerebral bleed AVM resection Migraine without aura, witho ut mention of intractable migraine without mention of status migrainosus 08/10/2005 DX:Migraine with out aura, without mention of intractable migraine without mention of status migrainosus Esophageal reflux 08/10/2005 DX:Esophageal reflux Patellofemoral pain syndrome 07/31/2007 DX: Patellofemoral pain syndrome Anxiety state, unspecified DX:An xiety state, unspecified Depression 12/16/2008 DX:Depression Historical Medical DX 2001 or 2002 DX:Pap sme ar abnormality; COMMENT: laser prodedure -[place] Women's Family History Medical History Relation Name Comments Breast cancer Aunt 1 m gr 50s Other cancer Aunt 2 maternal Prostate cancer Father 50's Hypertension Mother Other cancer Other cousin with ski n cancer ? Stroke Uncle Colon cancer Neg Hx Ovarian cancer Neg Hx Uterine cancer Neg Hx Relation Name Status Comments Aunt 1 m gr 50s Aunt 2 Father 50's Alive Mother Alive Other Uncle Social History Tobacco Use Types Packs/Day Years Used Date Smoking Tobacco: Never Smokeless Tobacco: Never Tobacco Cessation:Counseling Given: Not Answered Alcohol Use Standard Drinks/Week Comments Yes 0 (1 standard drink = 0.6 oz pur e alcohol) Comments No Sex and Gender Information Value Date Recorded Sex Assigned at Not on file Legal Sex Female 5:08 AM EST Gender Identity Not on file Sexual Orientation Not on file Obstetrics History Para Term AB IAB SAB Ectopic Multiple Livin g Live Births 2 2 2 2 Date Outcome GA Total Labor Labor/2nd/3rd Weight Sex Type Anes PTL Ne A1 A5 Name Clin Term Term Last Filed Vital Signs Vital Sign Reading Time Taken Comments Blood Pressure 103/67 02/26/2025 1:17 PM EDT Pulse 86 02/26/2025 1:17 PM EDT Temperature 36.6 C (97.9 F) 02/26/2025 1:17 PM EDT Respiratory Rate 16 02/26/2025 1:17 PM EDT Oxygen Saturation 98% 02/26/2025 1:17 PM EDT Inhaled Oxygen Concentration - - Weight 68.2 kg (150 lb 4.8 oz) 02/26/2025 1:17 P M EDT Height 162.6 cm (5' 4 ) 02/26/2025 1:17 PM EDT Body Mass Index 25.8 02/26/2025 1:17 PM EDT Plan of Treatment Upcoming Encounters Date Type Department Care Team (Late st Contact Info) Description 07/11/2025 10:00 AM EST Office Visit Adult Medicine [facility] [address] [place] [phone] Jamil Ford PA [address] [place] [phone] Health Maintenance Due Date Last Done Comments Hepatitis B Vaccines (1 of 3 - 19+ 3-dose series) 01/24/1991 Medicare Annual Wellness Visit 06/05/2022 Social Influencers of Health Screening 06/05/2022 Depression Screening 06/27/2024 09/20/2023 COVID-19 Vaccine ( season) 2025 03/30/2023, 04/23/2022, 05/15/2021, Additional history exists Influenza Vaccine (#1) 2025 1, 03/11/2008, 05/09/2007 Cervical Cancer Screening: HPV 12/17/2025 12/17/2020 Breast Cancer Screening 08/04/2026 08/04/19 25, 07/09/2023, 07/03/2022, Additional history exists Cholesterol Screening (Lipid Panel) 09/21/2029 09/21/2024, 11/29/2023 DTaP,Tdap,and Td Vaccines (4 - Td or Tdap) 09/01/2032 09/01/2022, 08/04/2012, 08/10/2005 Colorectal Cancer Screening: Colonoscopy 03/18/2033 03/18/2023 RSV Immunization Adult Patients (1 - 1-dose 75+ series) 01/24/2047 Pneumococcal Vaccine: 50+ Years Completed 01/19/2023 Zoster Vaccines Completed 03/30/2023, 01/19/2023 HIV Screening Completed 02/26/2025 Hepatitis C Screening Completed 02/26/2025, 023 HIB Vaccines Aged Out No longer eligi ble based on patient's age to complete this topic HPV Vaccines Aged Out No longer eligi ble based on patient's age to complete this topic Hepatitis A Vaccines Aged Out No long er eligible based on patient's age to complete this topic IPV Vaccines Aged Out No longer eligi ble based on patient's age to complete this topic MMR Vaccines Aged Out No longer eligi ble based on patient's age to complete this topic Meningococcal ACWY Vaccine Aged Out N o longer eligible based on patient's age to complete this topic Meningococcal B Vaccine Aged Out No l onger eligible based on patient's age to complete this topic RSV Immunization Patients Under 20 months Aged Out No longer eligible based on patient's age to complete this topic Varicella Vaccines Aged Out No longer eligible based on patient's age to complete this topic Procedures Procedure Name Priority Date/Time Associated Diagnosis Comments CHLAMYDIA TRACHOMATIS AND NEISSERIA GONORRHOEAE PCR Routine 02/27/2025 11:31 AM EDT Screen for STD (sexually transmitted disease) POC URINE AUTO W/O MICRO Routine 02/27/2025 9:59 AM EDT Vaginal odor US ABDOMEN LIMITED Routine 02/27/2025 9: 38 AM EDT Umbilical pain TREPONEMA PALLIDUM ANTIBODY WITH REFLEX TO RPR AND PARTICLE AGGLUTINATION Routine 02/26/2025 2:36 PM EDT Screen for STD (sexually transmitted disease) HIV 1, 2 ANTIBODY, P24 ANTIGEN WITH REFLEX TO DIFFERENTIATION Routine 02/26/2025 2:36 PM EDT Screen for STD (sexually transmitted disease) HEPATITIS C ANTIBODY Routine 02/26/2025 2:36 PM EDT Screen for STD (sexually transmitted disease) CULTURE URINE Routine 02/26/2025 2:17 PM EDT Vaginal odor LIPID PANEL WITH REFLEX TO DIRECT LDL Routine 09/21/2024 9:48 AM EDT Routine physical examination High cholesterol MG MAMMO DIGITAL SCREENING W CHARLIE BILAT Routine 08/04/2024 10:15 AM EST Encounter for screening mammogram for breast cancer DEPRESSION SCREENING Routine 09/20/2023 COLONOSCOPY Routine 03/18/2023 HPV Routine 12/17/2020 from Last 3 Months or Most Recently Relevant to Health Maintenance Results * Chlamydia trachomatis and Neisseria gonorrhoeae molecular study (02/27/2025 11:31 AM EDT) Neisseria gonorrhoeae PCR Negative Negative LAB MOLECULAR DIAGNOSTICS METHOD 02/28/2025 9:47 AM EDT [facility] Chlamydia trachomatis PCR Negative Negative LAB MOLECULAR DIAGNOSTICS METHOD 02/28/2025 9:47 AM EDT [facility] Urine First stream urine specimen / Unknown Non-blood Collection / Unknown 02/27/2025 11:31 AM EDT 02/27/2025 11:31 AM EDT Sonya Boston NP LAB MICROBIOLOGY - GENERAL OR DERABLES Final Result [facility] [address] [place] [address], * (ABNORMAL) POC Urine Auto W/O Micro (02/27/2025 9:59 AM EDT) Glucose UA POC Negative Negative, Trace mg/dL Bilirubin UA POC Negative Negative Ketones UA POC Trace(A) Negative Specific [place] UA POC 1.025 Blood UA POC Negative Negative Protein UA POC Negative Negative mg/dL Urine Urine specimen obtained by clean catch procedure / Unknown 02/27/2025 9:59 AM EDT us Sonya Boston SCHOLARSHIP COUNSELOR POINT OF CARE TEST ENTER/EDIT ORDERABLES Final Result * US Abdomen Limited (02/27/2025 9:38 AM EDT) Anatomical Region Laterality Modality Body Ultrasound 02/27/2025 2:15 PM EDT Impressions 02/27/2025 2:17 PM EDT Unremarkable exam. -------- FINAL REPORT -------- Dictated By: Marisabel Taylor Dictated Date: 02/27/2025 14:15 ET Assigned Physician: Marisabel Taylor Reviewed and Electronically Signed By: Marisabel Taylor Signed Date: 02/27/2025 14:17 ET Workstation ID: [id number] Transcribed By: Self Edit Transcribed Date: 02/27/2025 14:15 ET Narrative 02/27/2025 2:17 PM EDT US ABDOMEN LIMITED SONO SOFT TISSUE HISTORY: Pain in extremities. Rule out hernia. PRIORS: CT abdomen and pelvis 03/07/2015. FINDINGS: Ultrasound evaluation of the area of pain indicated by the patient in the periumbilical region was performed with and without Valsalva. There is no solid or cystic mass. There is no fascial defect. Procedure Note Marisabel Taylor MD - 02/27/2025 US ABDOMEN LIMITED SONO SOFT TISSUE HISTORY: Pain in extremities. Rule out hernia. PRIORS: CT abdomen and pelvis 03/07/2015. FINDINGS: Ultrasound evaluation of the area of pain indicated by thepatient in the periumbilical region was performed with and withoutValsalva. There is no solid or cystic mass. There is no fascial defect. IMPRESSION: Unremarkable exam. -------- FINAL REPORT -------- Dictated By: Marisabel Taylor Dictated Date: 02/27/2025 14:15 ET Assigned Physician: Marisabel Taylor Reviewed and Electronically Signed By: Marisabel Taylor Signed Date: 02/27/2025 14:17 ET Workstation ID: [id number] Transcribed By: Self Edit Transcribed Date: 02/27/2025 14:15 ET us Sonya Boston SCHOLARSHIP COUNSELOR IMG US PROCEDURES Final Resul t * Hepatitis C antibody (02/26/2025 2:36 PM EDT) Hepatitis C Antibody Negative Negative LAB CHEMISTRY METHOD 02/26/2025 6:33 PM EDT [facility] Blood Venous blood specimen / Unknown Venipuncture / Unknown 02/26/2025 2:36 PM EDT 02/26/2025 2:36 PM EDT Sonya Boston SCHOLARSHIP COUNSELOR LAB BLOOD ORDERABLES Final Re sult Performing Organization Address [facility]/ZIP Co de Phone Number [facility] [address] [place] [address], [place] [phone] * HIV 1,2 antibody, p24 antigen with reflex to differentiation (02/26/2025 2:36 PM EDT) [facility] HIV Combo AB/AG Negative Negative LAB CHEMISTRY METHOD 02/26/2025 6:34 PM EDT [facility] Blood Venous blood specimen / Unknown Venipuncture / Unknown 02/26/2025 2:36 PM EDT 02/26/2025 2:36 PM EDT Narrative [facility] - 02/26/2025 6:34 PM EDT This assay is a 4th generation assay allowing for earlier detection of HIV infection by detecting the presence of the HIV-1 p24 antigen as well as the traditional antibodies to HIV type 1 (including group O) and type 2. Use of a 4th generation assay is the current CDC recommendation for HIV screening. us Sonya Boston NP LAB BLOOD ORDERABLES Final Re sult Performing Organization Address [facility]/ZIP Co de Phone Number [facility] [address] [place] [address], [place] [phone] * Treponema pallidum antibody with reflex to RPR and particle agglutination (02/26/2025 2:36 PM EDT) T. Pallidum Antibodies Negative Negative LAB CHEMISTRY METHOD 02/26/2025 6:05 PM EDT [facility] Blood Venous blood specimen / Unknown Venipuncture / Unknown 02/26/2025 2:36 PM EDT 02/26/2025 2:36 PM EDT us Sonya Boston NP LAB BLOOD ORDERABLES Final Re sult [facility] [address] [place] [address], [place] [phone] * Culture urine (02/26/2025 2:17 PM EDT) [facility] Culture, Urine No growth 02/27/2025 1:36 PM EDT [facility] Urine Urine specimen obtained by clean catch procedure / Unknown Non-blood Collection / Unknown 02/26/2025 2:17 PM EDT 02/26/2025 2:17 PM EDT us Sonya Boston NP LAB MICROBIOLOGY - GENERAL OR DERABLES Final Result Performing Organization Address City/[facility]/ZIP Co de Phone Number [facility] [address] [place] [address], [place] [phone] * (ABNORMAL) Lipid panel with reflex to direct LDL (09/21/2024 9:48 AM EDT) [facility] Cholesterol 190 0 - 200 mg/dL LAB CHEMISTRY METHOD 09/21/2024 1:32 PM EDT [facility] Triglycerides 100 0 - 150 mg/dL LAB CHEMISTRY METHOD 09/21/2024 1:32 PM EDT [facility] HDL 66 >=40 mg/dL LAB CHEMISTRY METHOD 09/21/2024 1:32 PM EDT [facility] LDL Calculated 104(H) 0 - 100 mg/dL LAB CHEMISTRY METHOD 09/21/2024 1:32 PM EDT [facility] VLDL Cholesterol Luis Miguel 20 mg/dL LAB CHEMISTRY METHOD 09/21/2024 1:32 PM EDT [facility] Non HDL Chol. (LDL+VLDL) 124 <145 mg/dL LAB CHEMISTRY METHOD 09/21/2024 1:32 PM EDT [facility] Chol/HDL Ratio 2.9 0.0 - 4.4 LAB CHEMISTRY METHOD 09/21/2024 1:32 PM EDT [facility] Blood Venous blood specimen / Unknown Venipuncture / Unknown 09/21/2024 9:48 AM EDT 09/21/2024 9:48 AM EDT us Helder Cassidy MD LAB BLOOD ORDERABLES Final Resu lt [facility] [address] [place] [address], * MG Mammo Digital Screening w Charlie bilat (08/04/2024 10:15 AM EST) Anatomical Region Laterality Modality Breast Bilateral Mammography 08/06/2024 4:40 PM EST Impressions 08/06/2024 4:52 PM EST 1. No mammographic evidence of malignancy 2. Scattered fibroglandular tissue BI-RADS CATEGORY: 2 - BENIGN RECOMMENDATION: Screening bilateral mammogram is recommended in 1 year. Mammo Location: [facility], [address] [place] [address], [address], . -------- FINAL REPORT -------- Dictated By: Lucho Briceño Dictated Date: 08/06/2024 16:40 ET Assigned Physician: Lucho Briceño Reviewed and Electronically Signed By: Lucho Briceño Signed Date: 08/06/2024 16:52 ET Workstation ID: [id number] Transcribed By: Self Edit Transcribed Date: 08/06/2024 16:40 ET Narrative 08/06/2024 4:52 PM EST A BILATERAL DIGITAL 3D SCREENING MAMMOGRAPHY HISTORY: Routine screening. Family history of breast cancer in aunt COMPARISON: Multiple priors dating back to 05/16/2020 Technique: Bilateral full field digital mammography (3D) was performed using standard CC and MLO projections , right breast exaggerated CC CAD was used to evaluate this mammogram. FINDINGS: Right: No suspicious masses, groups of microcalcification or areas of architectural distortion identified. Stable typically benign parenchymal asymmetries. Left: No suspicious masses, groups of microcalcification or areas of architectural distortion identified. Stable typically benign parenchymal asymmetries. BREAST DENSITY: B - There are scattered areas of fibroglandular density. Procedure Note Lucho Briceño MD - 08/06/2024 A BILATERAL DIGITAL 3D SCREENING MAMMOGRAPHY HISTORY: Routine screening. Family history of breast cancer in aunt COMPARISON: Multiple priors dating back to 05/16/2020 Technique: Bilateral full field digital mammography (3D) was performedusing standard CC and MLO projections , right breast exaggerated CC CAD was used to evaluate this mammogram. FINDINGS: Right: No suspicious masses, groups of microcalcification or areas ofarchitectural distortion identified. Stable typically benign parenchymalasymmetries. Left: No suspicious masses, groups of microcalcification or areas ofarchitectural distortion identified. Stable typically benign parenchymalasymmetries. BREAST DENSITY: B - There are scattered areas of fibroglandular density. IMPRESSION: 1. No mammographic evidence of malignancy 2. Scattered fibroglandular tissue BI-RADS CATEGORY: 2 - BENIGN RECOMMENDATION: Screening bilateral mammogram is recommended in 1 year. Mammo Location: [facility], [address] [place] [address], [address], . -------- FINAL REPORT -------- Dictated By: Lucho Briceño Dictated Date: 08/06/2024 16:40 ET Assigned Physician: Lucho Briceño Reviewed and Electronically Signed By: Lucho Briceño Signed Date: 08/06/2024 16:52 ET Workstation ID: [id number] Transcribed By: Self Edit Transcribed Date: 08/06/2024 16:40 ET Helder Cassidy MD IMG BI PROCEDURES Final Result * Depression Screening (09/20/2023) Pathologist [facility] Depression Screening abstracted Historical Provider HEALTH MAINTENANCE Final Result * Colonoscopy (03/18/2023) Pathologist [facility] Colonoscopy no interpretation , abstracted Anatomical Region Laterality Modality Other Historical Provider HEALTH MAINTENANCE Final Result * Cervical Cancer Screening: HPV (12/17/2020) Pathologist [facility] Cervical Cancer Screening: HPV abstracted, negative Historical Provider HEALTH MAINTENANCE Final Result from Last 3 Months or Most Recently Relevant to Health Maintenance Insurance [facility] MEDICARE Member Subscriber Plan / Payer (Ef fective 2023-Present) Name:ELIESER CAREY Relation to Subscriber:Self Name:Elieser Carey Payer ID:[id number] Group ID:[id number] Type:Not on file Address: [place] [address] [address] [phone] Care Teams Pattern Chain Maker Supervisor Relationship Specialty Start Date End Date Helder Cassidy MD [address] [place] [phone] PCP - General Internal Medicine 07/24/12
== END 2025-05-02 15:51 | disposition home or self-care (01) ==
LOC: HO.HSM 15:15
PROVIDERS: PCP Internal Medicine; Referring Provider Internal Medicine; Visit Provider Registered Nurse
DX: G44.209 Tension-type headache, unspecified, not intractable (principal); R42 Dizziness and giddiness; G47.00 Insomnia, unspecified
CPT/HCPCS: 99214

== ENCOUNTER → 2025-05-02 15:14 | Outpatient (BNVA) | payer OTHER, SELFPAY | PROVIDERS: PCP Internal Medicine; Referring Provider Internal Medicine; Visit Provider Registered Nurse | DX: R42 Dizziness and giddiness (principal); G44.209 Tension-type headache, unspecified, not intractable; G47.00 Insomnia, unspecified | CPT/HCPCS: 99212 ==